=== PATIENT | female | born 1990 | race Asian ===

== ENCOUNTER 2021-05-17 20:26 | Emergency (ER) | payer OTHER ==
[~2021-05-17] VITALS: Ht 162.6 cm; Wt 54.3 kg
[2021-05-17] MEDS: IV RINGERS SOLUTION,LACTATED 1,000 ML IV ONE (20:30)
--- NOTE | 2021-05-17 20:31 | PHYS DOC ---
Adult General HPI HPI Patient 31-year-old female at 14 weeks presents with nausea and vomiting that started earlier today. States that she has had 2 ultrasounds up to this point and the most recent 2 weeks ago and all was normal. She denies any abdominal pains, cramping, vaginal pain, vaginal bleeding, vaginal discharge or loss of fluid. States that she is mostly nauseous until she tries to eat something then throws up. Denies any recent traumas, travels, illnesses, fevers, chest pain, shortness of breath, dysuria, hematuria, blood in the stool or diarrhea. Denies any known ill contacts. Review of Systems Review of Systems Review systems otherwise unremarkable except noted in HPI Physical Exam Physical Exam Constitutional: Well developed, well nourished, no acute distress, non-toxic appearance. [] HENT: Normocephalic, atraumatic, bilateral external ears normal, oropharynx moist, no oral exudates, nose normal. [] Eyes: PERRLA, EOMI, conjunctiva normal, no discharge. [] Neck: Normal range of motion, no tenderness, supple, no stridor. [] Cardiovascular:Heart rate regular rhythm, no murmur [] Lungs & Thorax: Bilateral breath sounds clear to auscultation [] Abdomen: Gravid uterus with fundus well under umbilicus, soft, no tenderness, no masses, no pulsatile masses. [] Skin: Warm, dry, no erythema, no rash. [] Back: no CVA tenderness. [] Extremities: No tenderness, no cyanosis, no clubbing, ROM intact, no edema. [] Neurologic: Alert and oriented X 3, normal motor function, normal sensory function, no focal deficits noted. [] Psychologic: Affect normal, judgement normal, mood normal. [] EKG EKG [] Radiology/Procedures Radiology/Procedures [] Heart Score C/O Chest Pain: No Risk Factors: Risk Factors: DM, Current or recent (<one month) smoker, HTN, HLP, family history of CAD, obesity. Risk Scores: Risk Factors: DM, Current or recent (<one month) smoker, HTN, HLP, family hi story of CAD, obesity. Course & Med Decision Making Course & Med Decision Making Patient is a 31-year-old female at 14 weeks who presents with nausea and vomiting Vital signs notable for sinus tachycardia. Physical exam noted above. Patient given Reglan and Benadryl as well as IV fluid resuscitation. Laboratory analysis notable for borderline hyponatremia and hypomagnesemia. Replaced magnesium. On reassessment patient stated nausea had resolved and she was ready to be discharged home. Discussed symptomatic treatment at home and given prescription for Reglan. Advised also on Benadryl use at home scheduled. Advised to call primary care physician/[facility] first thing Thursday to update on ED visit and set up an immediate follow-up. Discussed diet recommendations over the next couple of days. Gave return precautions to the ED. Family grateful, verbalized understanding and agreed with plan of discharge. Dragon Disclaimer Dragon Disclaimer This electronic medical record was generated, in whole or in part, using a voice recognition dictation system. Departure Departure: Impression: Primary Impression: Nausea and vomiting during prior to 22 weeks gestation Additional Impression: Hypomagnesemia Disposition: HOME / SELF CARE / HOMELESS Condition: GOOD Referrals: JELANI INFANTE MD (PCP) Patient Instructions: ABCs of , Hypomagnesemia, Nausea and Vomiting Additional Instructions: Thank you for coming into the emergency department tonight and allowing us to take care of you. Please read the attached information carefully to go over the things that we discussed. As we discussed please eat a light clear diet with lots of fluids such as Pedialyte, Gatorade. Please use your prescription nausea medicine as prescribed as well as Benadryl the way we discussed. Please call your primary care/[facility] first thing Thursday to update on ED visit and set up an immediate follow-up visit to discuss further need for evaluation and treatment. Please come back to the emergency department immediately with new or concerning symptoms as we discussed. Scripts Metoclopramide Hcl (REGLAN) 10 Mg Tablet 1 TAB PO Q6HRS for nausea for 7 Days, #28 TAB 0 Refills before food and bedtime Prov: CINTIA AUGUSTE MD 05/17/21 Problem Qualifiers CINTIA AUGUSTE MD May 17, 2021 20:31
[2021-05-17] MEDS: diphenhydrAMINE 50 MG/ML VIAL IVP ONE (21:51)
[2021-05-17] MEDS: METOCLOPRAMIDE HCL 10 MG/2 ML VIAL. IVP ONE (21:51)
[2021-05-17 22:01] LABS: HEMATOCRIT 41.2 % (36.0-47.0); HEMOGLOBIN 14.2 g/dL (12.0-15.5); RED BLOOD COUNT 4.57 x10^6/uL (3.50-5.40); RED CELL DISTRIBUTION WIDTH 12.5 % (11.5-14.5); WHITE BLOOD COUNT 12.2 x10^3/uL (4.0-11.0)
[2021-05-17 22:08] LABS: CALCIUM 9.2 mg/dL (8.5-10.1); CREATININE 0.5 mg/dL (0.6-1.0); GFR 142.1; MAGNESIUM 1.7 mg/dL (1.8-2.4); POTASSIUM 3.8 mmol/L (3.5-5.1)
[2021-05-17] MEDS ORDERED: METO10TA81 PO (22:29)
[2021-05-17] MEDS ORDERED: PROM25SU33 RC (22:30)
[2021-05-17 22:55] VITALS: BP 122/80
[2021-05-17] MEDS: MAGNESIUM OXIDE 400 MG TABLET PO ONE (22:56)
== END 2021-05-17 23:03 | disposition home or self-care (01) ==
LOC: ER 20:26
DX: O21.9 Vomiting of pregnancy, unspecified (principal); O99.281 Endocrine, nutritional and metabolic diseases complicating pregnancy, first trimester; E83.42 Hypomagnesemia; Z3A.14 14 weeks gestation of pregnancy
CPT/HCPCS: 36415; 80048; 83735; 85027; 96361; 96374; 96375; 99284; J1200; J2765; J7120